=== PATIENT | female | born 1980 | race Caucasian/White ===

== ENCOUNTER 2024-11-15 11:00 | Outpatient (CLI) | payer BC, SELFPAY | END 2024-11-15 11:01 | disposition home or self-care (01) | PROVIDERS: PCP Family Medicine; Visit Provider Family Medicine | DX: M47.816 Spondylosis without myelopathy or radiculopathy, lumbar region (principal) | CPT/HCPCS: 64493; J0702; Q9966 ==

== ENCOUNTER 2025-02-14 10:18 | Outpatient (CLI) | payer BC, SELFPAY | END 2025-02-14 10:19 | disposition home or self-care (01) | LOC: INJ CL 10:19 | PROVIDERS: PCP Family Medicine; Visit Provider Family Medicine | DX: M47.816 Spondylosis without myelopathy or radiculopathy, lumbar region (principal) | CPT/HCPCS: 64493; Q9966 ==